=== PATIENT | female | born 1965 | race African-American/Black ===

== ENCOUNTER 2020-07-08 12:27 | Emergency (ER) | payer SELFPAY ==
[2020-07-08] VITALS (15 sets, daily range): BP systolic 67–182; BP diastolic 48–111; PULSE 53–92; RESP 8–21; TEMP 36.7; O2SAT 84–100
--- NOTE | ~2020-07-08 | CT_ITS ---
EXAMINATION: CT BRAIN W/O DATE: 07/08/2020 14:15 INDICATION: High pressure and blurriness for one and a half weeks TECHNIQUE: Computed tomography (CT) of the head was performed without intravenous contrast. The dose- length product was 529.67 mGy-cm. The mA was adjusted according to patient size. Iterative reconstruc tion technique was employed. COMPARISON: No prior studies for comparison. FINDINGS: Normal brain parenchymal volume for age. Normal fenton-white differentiation. No acute intrac ranial hemorrhage, infarction, mass or mass effect. No ventriculomegaly or midline shift. Midline sagittal images demonstrate a normal corpus callosum, c raniovertebral junction and sella turcica. Basilar cisterns are patent. Paranasal sinuses and mastoids are pneumatized. No depressed skull fractures. IMPRESSION: 1. No acute intracranial abnormality. Reviewed, dictated and finalized at location A.
--- NOTE | ~2020-07-08 | XR_ITS ---
EXAMINATION: XR chest 1V portable EXAM DATE: 07/08/2020 14:42 INDICATION: Blurred vision. Finger numbness. TECHNIQUE: Portable AP frontal chest x-ray was obtained. Comparison is made to prior examination from 01/04/2009. FINDINGS: The lungs are clear. There are no pleural effusions. The cardiomediastinal silhouette is within normal limits. There is no pneumothorax suspected. There are mild bony degenerative changes. Left hilar granulomas. IMPRESSION: No acute cardiopulmonary findings. Reviewed, dictated and finalized at location B.
--- NOTE | 2020-07-08 12:59 | PC.NURSE ---
Pt states she has blurred vision, redness to L eye, R side of body dehydrated, and pain to R side if she pokes her R rib cage. Pt denies other symptoms. Pt is A&Ox4. Pt states she has had increased stress lately. Pt appears in NAD.
--- NOTE | 2020-07-08 13:48 | PC.NURSE ---
20/20 both eyes 20/40 R eye 20/20 L eye
[2020-07-08 13:56] LABS: Anion Gap 7 mmol/L (8-16); Blood Urea Nitrogen 4 mg/dL (7-17); Carbon Dioxide 27 mmol/L (22-30); Chloride 105 mmol/L (98-107); Estimated CRCL calculation 91 ml/min; Estimated Glomerular Filt Rate > 60; Glucose 110 mg/dL (65-105); Potassium 3.4 mmol/L (3.4-5.0); Sodium 139 mmol/L (137-145)
--- NOTE | 2020-07-08 13:59 | ECG_ITS ---
Measurements Intervals [place] Rate: 58 P: 46 IA: 231 QRS: 9 QRSD: 91 T: 36 QT: 435 QTc: 430 Interpretive Statements SINUS BRADYCARDIA WITH FIRST DEGREE AV BLOCK VOLTAGE CRITERIA FOR LVH ABNORMAL ECG Electronically Signed On 07-08-2020 14:29:16 CDT by Ben Hernandez D.O.
[2020-07-08 14:33] LABS: Glucose Point of Care 99 (65-105)
[2020-07-08 14:43] LABS: Basophils Percent Auto 0.3 % (0.2-1.2); Eosinophils Percent Auto 0.1 % (0-4.4); Hematocrit 39.2 % (37.0-47.0); Hemoglobin 12.8 g/dL (12.0-15.0); Immature Granulocyte Absolute 0.01 K/mm3 (0.00-0.031); Immature Granulocyte Percent A 0.1 % (0-0.5); Lymphocytes Absolute Auto 1.78 K/mm3 (0.9-3.2); Lymphocytes Percent Auto 24.4 % (18.3-44.2); Mean Corpuscular HGB Conc 32.7 g/dl (32-36); Mean Corpuscular Hemoglobin 31.3 pg (26-34); Mean Corpuscular Volume 95.8 fl (80-100); Mean Platelet Volume 10.8 fl (7.4-10.4); Monocytes Absolute Auto 0.5 K/mm3 (0.1-0.6); Monocytes Percent Auto 6.6 % (2.6-8.5); Neutrophils Percent Auto 68.5 % (45.5-73.1); Platelet Count Result 260 k/mm3 (150-375); Red Blood Count 4.09 M/mm3 (4.2-5.4); Red Cell Distribution Width 12.5 % (11.5-14.5); White Blood Count 7.3 K/mm3 (4.5-10.0)
[2020-07-08 14:48] LABS: Prothrombin Time 13.1 Seconds (11.1-14.7)
[2020-07-08 14:49] LABS: Partial Thromboplastin Time 28.2 SECONDS (22.3-36.8)
[2020-07-08 15:02] LABS: Troponin I < 0.012 ng/mL (0.000-0.034)
--- NOTE | 2020-07-08 15:25 | ED.GENADULT ---
HPI - General Adult General Chief complaint: Eye Problems Stated complaint: multi c/o Time Seen by Provider: 07/08/20 12:56 History of Present Illness HPI narrative: Patient is a 54-year-old female who presents the ER with multiple complaints. She reports intermittently over the last month she has felt like she has had some dryness in her mouth on the right side. She will occasionally feel this way in the arm as well. Yesterday she began having twitching of her left cheek and then today she woke up and noticed that her left lateral eye was bloodied. Denies any trauma to her eye. She had brief blurring of her vision which is now normalized. No headache or slurred speech. No word finding difficulty. Related Data Allergies Allergy/AdvReac Type Severity Reaction Status Date / Time No Known Allergies Allergy Mild Verified 07/08/20 12:37 Review of Systems Review of Systems: All systems reviewed & are unremarkable except as noted in HPI and below Constitutional: Constitutional: Denies chills, Denies fever(s) and Denies weakness Eyes: Eyes: Reports as per HPI and Reports photophobia ENT: Denies nasal congestion and Denies sore throat Cardiovascular: Cardiovascular: Denies chest pain, Denies rapid heart rate and Denies radiating jaw, neck or arm pain Respiratory: Respiratory: Denies cough and Denies dyspnea Neurologic: Denies dizziness, Denies syncope, Denies headache(s), Denies focal weakness and Reports numbness PMFSH Past Medical History Medical History (Updated 07/08/20 @ 17:10 by Oliverio Maloney MD) H/O: HTN (hypertension) Surgical History Surgical History (Updated 07/08/20 @ 15:32 by Oliverio Maloney MD) H/O section Social History Social History (Updated 07/08/20 @ 15:33 by Oliverio Maloney MD) Smoking status: Never smoker Exam Narrative: Exam Narrative: GENERAL: Well-appearing, well-nourished, and in no acute distress. HEAD: Normocephalic, atraumatic. Eyes: PERRLA, EOMI. Left eye with small subconjunctival hemorrhage laterally. Left eye also has a intraocular pressure of 17 mmHg averaged over 6 tests. ENT: Mucous membranes moist. CHEST: Clear to auscultation. No respiratory distress. HEART: Regular rate and rhythm. Normal peripheral pulses. ABDOMEN: Soft, nontender, nondistended. EXTREMITIES: Normal range of motion. No edema. SKIN: Warm, dry, no rash. NEURO: No focal deficits. Cranial nerves II through XII intact. Clear speech. Normal sensation. Alert and oriented x3. Course Course Emergency Course: Patient reports she feels better after using the restroom. Blood pressures have improved since resting. Encouraged follow-up with her primary care physician for further treatment evaluation. Unremarkable evaluation otherwise. Vital Signs Vital signs: Vital Signs Temperature 98.0 F 07/08/20 12:34 Pulse Rate 88 07/08/20 12:34 Respiratory Rate 16 07/08/20 12:34 Blood Pressure 178/103 H 07/08/20 12:34 Pulse Oximetry 100 07/08/20 12:34 Temperature 98.0 F 07/08/20 12:34 Pulse Rate 64 07/08/20 14:30 Respiratory Rate 8 L 07/08/20 14:30 Blood Pressure 143/77 H 07/08/20 14:01 Pulse Oximetry 100 07/08/20 14:30 Medical Decision Making Vital Signs Vital Signs: Vital Signs Temperature 98.0 F 07/08/20 12:34 Pulse Rate 88 07/08/20 12:34 Respiratory Rate 16 07/08/20 12:34 Blood Pressure 178/103 H 07/08/20 12:34 Pulse Oximetry 100 07/08/20 12:34 Temperature 98.0 F 07/08/20 12:34 Pulse Rate 64 07/08/20 14:30 Respiratory Rate 8 L 07/08/20 14:30 Blood Pressure 143/77 H 07/08/20 14:01 Pulse Oximetry 100 07/08/20 14:30 Lab Data Result diagrams: 07/08/20 14:30 07/08/20 13:34 Labs: Lab Results 07/08/20 07/08/20 07/08/20 Range/Units 13:34 14:28 14:30 WBC 7.3 (4.5-10.0) K/mm3 RBC 4.09 L (4.2-5.4) M/mm3 Hgb 12.8 (12.0-15.0) g/dL Hct 39.2 (37.0-47.0) % MCV 95
== END 2020-07-08 17:50 | disposition home or self-care (01) ==
PROVIDERS: Emergency Provider Emergency Medicine
DX: H57.89 Other specified disorders of eye and adnexa (principal); I10 Essential (primary) hypertension; R00.1 Bradycardia, unspecified
CPT/HCPCS: 36415; 70450; 71045; 80048; 82948; 84484; 85025; 85610; 85730; 93005; 99284